=== PATIENT | female | born 2005 | race African-American/Black ===

== ENCOUNTER 2024-04-10 21:27 | Emergency (ER) | payer MEDICAID, SELFPAY ==
--- NOTE | ~2024-04-10 | XR_ITS ---
Portable chest x-ray Comparison: None Clinical History: Cough Findings: Lungs are clear, without focal consolidation or pleural effusion. Cardiomediastinal silho uette is unremarkable. Bones and soft tissues are unremarkable. Impression: Normal chest. Reviewed, dictated and finalized at location . ETSWEEPER OPERATOR Impression: Normal chest.
[2024-04-10 21:29] VITALS: BP 121/68; PULSE 67; RESP 15; TEMP 36.5; O2SAT 100
--- NOTE | 2024-04-10 22:57 | ECG_ITS ---
Test Date: 2024-04-10 23:24:08 Measurements Intervals [place] Rate: 69 P: 0 AR: 127 QRS: 33 QRSD: 89 T: 30 QT: 390 QTc: 418 Interpretive Statements SINUS RHYTHM NONSPECIFIC ST AND T WAVE ABNORMALITY No previous ECG available for comparison Electronically Signed On 04-11-2024 14:24:07 [employer] MACHINE by Fabian Godoy M.D.
[2024-04-10] MEDS: SODIUM CHLORIDE 0.9% IV 1,000 ML 999 ML IV CONT ×2 (23:14)
[2024-04-10 23:54] LABS: Basophils Percent Auto 0.6 % (0.2-1.2); Eosinophils Absolute Auto 0.1 K/mm3 (0-0.3); Hematocrit 31.9 % (37.0-47.0); Hemoglobin 10.5 g/dL (12.0-15.0); Immature Granulocyte Absolute 0.02 K/mm3 (0.00-0.031); Immature Granulocyte Percent A 0.4 % (0-0.5); Lymphocytes Absolute Auto 1.74 K/mm3 (0.9-3.2); Lymphocytes Percent Auto 33.9 % (18.3-44.2); Mean Corpuscular HGB Conc 32.9 g/dl (32-36); Mean Corpuscular Hemoglobin 28.3 pg (26-34); Mean Platelet Volume 9.2 fl (7.4-10.4); Monocytes Absolute Auto 0.3 K/mm3 (0.1-0.6); Monocytes Percent Auto 6.2 % (2.6-8.5); Neutrophils Percent Auto 57.9 % (45.5-73.1); Platelet Count Result 210 k/mm3 (150-375); Red Blood Count 3.71 M/mm3 (4.2-5.4); Red Cell Distribution Width 12.9 % (11.5-14.5); White Blood Count 5.1 K/mm3 (4.5-10.0)
[2024-04-10 23:59] LABS: Add Urine Microscopic? NO; Appearance Urine Clear (Clear); Bilirubin Urine Negative (Negative); Blood Urine Negative (Negative); Color Urine Yellow (Yellow); Glucose Urine UA 2+ mg/dL (Negative); Ketones Urine Negative (Negative); Leukocyte Esterase Ur Negative LEU/UL (Negative); Nitrate Urine Negative (Negative); Protein Urine Negative (Negative); Specific Grav Ur 1.041 (1.001-1.035); pH Urine 7.5 (5.0-9.0)
[2024-04-11 00:09] VITALS: RESP 16
[2024-04-11 00:14] LABS: Beta-Hydroxybutyrate/Acetoacetate 0.09 mmol/L (0.02-0.27)
[2024-04-11 00:19] LABS: Alanine Aminotransferase 15 U/L (6-35); Albumin Level 2.9 g/dL (3.5-5.1); Alkaline Phosphatase 68 U/L (38-126); Anion Gap 0 mmol/L (4-12); Aspartate Amino Transferase 14 U/L (14-36); Bilirubin,Total 0.2 mg/dL (0.2-1.3); Blood Urea Nitrogen 6 mg/dL (7-17); Calcium 6.7 mg/dL (8.4-10.2); Carbon Dioxide 22 mmol/L (22-30); Chloride 113 mmol/L (98-107); Estimated CRCL calculation 281 ml/min; Estimated Glomerular Filt Rate > 60; Glucose 196 mg/dL (65-110); Lipase 64 U/L (23-300); Magnesium 1.5 mg/dL (1.6-2.3); Phosphorus 2.4 mg/dL (2.5-4.5); Potassium 3.4 mmol/L (3.4-5.0); Sodium 135 mmol/L (137-145)
[2024-04-11 00:29] LABS: Influenza A QL RT-PCR Negative (Negative); Influenza B QL RT-PCR Negative (Negative); RSV RNA, RT-PCR Negative (Negative); SARS-CoV-2 RNA PCR Negative (Negative)
--- NOTE | 2024-04-11 00:34 | PC.NURSE ---
THIS RN ATTEMPTED TO REDRAW LACTIC ACID THAT WAS REJECTED. PT STATES SHE REFUSES TO BE STUCK BY ANOTHER NEEDLE AND WANTS TO REFUSE LAB.
[2024-04-11 00:39] LABS: BEDSIDEPREGUCG Negative (Negative)
--- NOTE | 2024-04-11 00:47 | ED_ITS ---
HPI - General Adult General Chief complaint: Recheck/Abnormal Lab/Rx Stated complaint: high blood sugar Time Seen by Provider: 04/10/24 22:50 History of Present Illness HPI narrative: Patient is a 19-year-old female who presents emergency department with chief complaint of hyperglycemia. Patient reports that she has history of type 2 diabetes reports that she takes Lantus at night and reports that she is supposed to take metformin. The patient reports that the metformin is caused her to have diarrhea and she is not always compliant with this the patient also reports that she has not been checking her blood sugars quite frequently the patient does report that she has been feeling thirsty all the time and has had frequent urination the patient reports that today she felt a little weak and decided to go to the clinic at work and they noticed her blood sugars were elevated and referred the patient to the emergency department. The patient denies chest pain denies shortness of breath denies fever Related Data Allergies Allergy/AdvReac Type Severity Reaction Status Date / Time No Known Allergies Allergy Verified 04/10/24 23:13 Review of Systems 2 Review of Systems: A 10 system review of systems was completed on the patient and is negative except for what is stated in the HPI. Nursing and ancillary documentation was reviewed. Exam 2 Narrative: GENERAL: Well-appearing, well-nourished, and in no acute distress. HEAD: Normocephalic, atraumatic. EYES: PERRLA and EOMI. ENT: Nares clear, no rhinorrhea or epistaxis. Mucous membranes moist. NECK: Supple. CHEST: Clear to auscultation. No respiratory distress. HEART: Regular rate and rhythm. No murmur heard. Normal peripheral pulses. ABDOMEN: Soft, nontender, nondistended, normal active bowel sounds. EXTREMITIES: Normal range of motion. No edema. SKIN: Warm, dry, no rash. NEURO: No focal deficits. Alert and oriented x3. PSYCH: Normal mood and affect. Course Vital Signs Vital signs: Vital Signs Temperature 36.5 C 04/10/24 21:29 Pulse Rate 67 04/10/24 21:29 Respiratory Rate 15 04/10/24 21:29 Blood Pressure 121/68 04/10/24 21:29 Pulse Oximetry 100 04/10/24 21:29 Oxygen Delivery Room Air 04/10/24 21:29 Temperature 36.5 C 04/10/24 21:29 Pulse Rate 67 04/10/24 21:29 Respiratory Rate 16 04/11/24 00:09 Blood Pressure 121/68 04/10/24 21:29 Pulse Oximetry 100 04/10/24 21:29 Oxygen Delivery Room Air 04/10/24 21:29 Medical Decision Making MDM Narrative Medical decision making narrative: Differential diagnosis includes HHS, DKA, hyperglycemia, dehydration, UTI, electrolyte abnormality Laboratory studies were obtained on the patient showed a CBC with white count 5.1 hemoglobin was 10.5 electrolytes showed a potassium of 3.4 anion gap was 0 BUN was 6 and creatinine was 0.3 blood sugar was 196 magnesium was 1.5 liver enzymes are normal lipase was normal beta hydroxybutyrate was 0.09 urinalysis showed 2+ glucose Patient received 2 L of normal saline boluses patient was negative for COVID flu RSV Chest x-ray showed no focal infiltrate Blood sugar has come down to 196 Patient's magnesium will be replaced patient will be discharged to follow-up with her primary care provider Vital Signs Vital Signs: Vital Signs Temperature 36.5 C 04/10/24 21:29 Pulse Rate 67 04/10/24 21:29 Respiratory Rate 15 04/10/24 21:29 Blood Pressure 121/68 04/10/24 21:29 Pulse Oximetry 100 04/10/24 21:29 Oxygen Delivery Room Air 04/10/24 21:29 Temperature 36.5 C 04/10/24 21:29 Pulse Rate 67 04/10/24 21:29 Respiratory Rate 16 04/11/24 00:09 Blood Pressure 121/68 04/10/24 21:29 Pulse Oximetry 100 04/10/24 21:29 Oxygen Delivery Room Air 04/10/24 21:29 Lab Data 04/10/24 23:43 04/10/24 23:43 Labs: Lab Results 04/10/24 04/11/24 Range/Units 23:43 00:35 WBC 5.1 (4.5-10.0) K/mm3 RBC 3.71 L (4.2-5.4) M/mm3 Hgb 10.5 L (12.0-15.0) g/dL Hct 31.9 L (37.0-47.0) % MCV 86.0 (80-100) fl MCH 28.3 (26-34) pg MCHC 32.9 (32-36) g/dl RDW 12.9 (11.5-14.5) % Plt Count 210 (150-375) k/mm3 MPV 9.2 (7.4-10.4) fl Immature Gran % (Auto) 0.4 (0-0.5) % Neut % (Auto) 57.9 (45.5-73.1) % Lymph % (Auto) 33.9 (18.3-44.2) % [place] % (Auto) 6.2 (2.6-8.5) % Eos % (Auto) 1.0 (0-4.4) % Baso % (Auto) 0.6 (0.2-1.2) % Lymph # (Auto) 1.74 (0.9-3.2) K/mm3 [place] # (Auto) 0.3 (0.1-0.6) K/mm3 Eos # (Auto) 0.1 (0-0.3) K/mm3 Baso # (Auto) 0.0 (0.0-0.1) K/mm3 Abs Immat Gran (auto) 0.02 (0.00-0.031) K/mm3 Absolute Neuts (auto) 3.0 (1.3-6.7) K/mm3 Absolute Nucleated RBC 0.000 (0.0-0.012) K/mm3 Nucleated RBC % 0.0 (0.0-0.2) % Sodium 135 L (137-145) mmol/L Potassium 3.4 (3.4-5.0) mmol/L Chloride 113 H (98-107) mmol/L Carbon Dioxide 22 (22-30) mmol/L Anion Gap 0 L (4-12) mmol/L BUN 6 L (7-17) mg/dL Creatinine 0.30 L (0.7-1.0) mg/dL Estim Creat Clear Calc 281 ml/min Estimated GFR > 60 (59 - ) Glucose 196 H (65-110) mg/dL Lactic Acid Pending Calcium 6.7 L (8.4-10.2) mg/dL Phosphorus 2.4 L (2.5-4.5) mg/dL Magnesium 1.5 L (1.6-2.3) mg/dL Total Bilirubin 0.2 (0.2-1.3) mg/dL AST 14 (14-36) U/L ALT 15 (6-35) U/L Alkaline Phosphatase 68 (38-126) U/L Total Protein 6.0 L (6.3-8.2) g/dL Albumin 2.9 L (3.5-5.1) g/dL Lipase 64 (23-300) U/L Beta-Hydroxybutyrate/Acetoacetate 0.09 (0.02-0.27) mmol/L Urine Color Yellow (Yellow) Urine Appearance Clear (Clear) Urine pH 7.5 (5.0-9.0) Ur Specific [place] 1.041 H (1.001-1.035) Urine Protein Negative (Negative) mg/dL Urine Glucose (UA) 2+ H (Negative) mg/dL Urine Ketones Negative (Negative) mg/dL Ur Blood (Man) Negative (Negative) Urine Nitrate Negative (Negative) Urine Bilirubin Negative (Negative) Urine Urobilinogen 1.0 (<2.0) mg/dL Leukocyte Esterase Rfl Negative (Negative) BRANDON/UL POC Urine HCG, Qual Negative (Negative) Influenza A (RT-PCR) Negative (Negative) Influenza B (RT-PCR) Negative (Negative) RSV (RT-PCR) Negative (Negative) SARS-CoV-2 RNA (RT-PCR) Negative (Negative) Discharge Plan Discharge Clinical Impression: Hyperglycemia due to type 2 diabetes mellitus, Hypomagnesemia Patient Disposition: Home, Self-Care Condition: Stable Instructions: Antibiotic Form, Diabetic Hyperglycemia (ED) Patient Language: Chinese Prescriptions: New magnesium oxide 500 mg magnesium tablet 500 mg PO DAILY Qty: 10 0RF Follow-up/Referrals: Neel Franks MD [Physician] - UNKNOWN,DOCTOR [Primary Care Provider] - Time of Disposition: 00:53
[2024-04-11 00:51] LABS: Glucose Point of Care 196 mg/dl (65-105)
[2024-04-11] MEDS: MAGNESIUM SULF 2 GM/WATER 50ML 2 GM/50 ML BAG IVPB (01:03)
== END 2024-04-11 02:39 | disposition home or self-care (01) ==
PROVIDERS: Emergency Provider Emergency Medicine
DX: E11.65 Type 2 diabetes mellitus with hyperglycemia (principal); E83.42 Hypomagnesemia; Z20.822 Contact with and (suspected) exposure to COVID-19; Z79.4 Long term (current) use of insulin; Z79.84 Long term (current) use of oral hypoglycemic drugs; R94.31 Abnormal electrocardiogram [ECG] [EKG]
CPT/HCPCS: 36415; 71045; 80053; 81003; 81025; 82010; 82948; 83605; 83690; 83735; 84100; 85025; 87637; 93005; 96361; 96365; 96366; 99284; J3475; J7030